=== PATIENT | female | born 1960 | race Asian ===

== ENCOUNTER → 2024-10-08 | Day surgery (SDC) | payer BC | END | disposition home or self-care (01) | LOC: JRADUS-SUR 10:42 | PROVIDERS: ATTEND Surgery Surgical Oncology | PROC: BH01ZZZ Plain Radiography of Left Breast (ICD-10-PCS; principal; 2024-10-08) | DX: D05.12 Intraductal carcinoma in situ of left breast (principal) | CPT/HCPCS: 19281; A4648 ==

== ENCOUNTER 2024-10-16 09:03 | Day surgery (SDC) | payer BC ==
[2024-10-08 13:21] VITALS: BMI 19.5
[2024-10-16] MEDS ORDERED: LIDOCAINE HCL/PF 2% SDV 5ML VIAL ONE (10:29)
[2024-10-16] MEDS ORDERED: MIDAZOLAM HCL 2 MG/2 ML SINGLE DOSE VIAL ONE (10:29)
[2024-10-16] MEDS ORDERED: PROPOFOL 20 ML ONE (10:29)
[2024-10-16] MEDS ORDERED: PROMETHAZINE HCL 25 MG/1 ML VIAL IVPB PRN (10:43)
[2024-10-16] MEDS ORDERED: ONDANSETRON 4 MG/2 ML VIAL IVPUSH PRN (10:43)
[2024-10-16] MEDS ORDERED: oxyCODONE HCL 5 MG TABLET PO PRN (10:43)
[2024-10-16] MEDS ORDERED: LACTATED RINGERS SOLUTION 1,000 ML IV SCH (10:45)
[2024-10-16] MEDS ORDERED: ACETAMINOPHEN INJECTION 100 ML ONE (11:00)
[2024-10-16] MEDS ORDERED: ONDANSETRON 4 MG/2 ML VIAL ONE (11:47)
[2024-10-16] MEDS ORDERED: KETOROLAC TROMETHAMINE 30 MG/1 ML VIAL ONE (11:47)
[2024-10-16] MEDS: BUPIVACAINE HCL/PF 0.5% (5MG/ML) 10 ML VIAL IJ ONE (11:49)
[2024-10-16] MEDS ORDERED: oxyCODONE HCL 5 MG TABLET ONE (13:04)
[2024-10-16] MEDS: oxyCODONE HCL 5 MG TABLET PO PRN (13:05)
[2024-10-16] MEDS ORDERED: BUPIVACAINE HCL/PF 0.5% (5MG/ML) 10 ML VIAL ONE (13:12)
[2024-10-16 13:13] VITALS: TEMP 97.7
[2024-10-16 13:47] VITALS: BP 137/65; PULSE 67; RESP 18
== END 2024-10-16 13:45 | disposition home or self-care (01) ==
LOC: FASU 09:03
PROVIDERS: ATTEND Surgery Surgical Oncology
PROC: 0HBU0ZZ Excision of Left Breast, Open Approach (ICD-10-PCS; principal; 2024-10-16 11:25)
DX: D05.12 Intraductal carcinoma in situ of left breast (principal)
CPT/HCPCS: 76098-TC-FY; 88305-TC; 88307-TC; 88342-TC; 94760

== ENCOUNTER 2024-11-13 07:09 | Day surgery (SDC) | payer BC ==
[2024-11-11 12:44] VITALS: BMI 30.2
[2024-11-13] MEDS ORDERED: BUPIVACAINE HCL/PF 0.5% (5MG/ML) 10 ML VIAL ONE (11:12)
[2024-11-13] MEDS ORDERED: PROPOFOL 20 ML ONE ×2 (11:24→11:38)
[2024-11-13] MEDS ORDERED: LIDOCAINE HCL/PF 2% SDV 5ML VIAL ONE (11:40)
[2024-11-13] MEDS ORDERED: MIDAZOLAM HCL 2 MG/2 ML SINGLE DOSE VIAL ONE (11:45)
[2024-11-13] MEDS ORDERED: ACETAMINOPHEN INJECTION 100 ML ONE (11:46)
[2024-11-13] MEDS ORDERED: HYDROmorphone HCL/PF 1 MG/ML VIAL ONE (11:58)
[2024-11-13] MEDS ORDERED: ONDANSETRON 4 MG/2 ML VIAL ONE (12:03)
[2024-11-13] MEDS ORDERED: DEXAMETHASONE SOD PHOSPHATE 4 MG/1 ML VIAL ONE (12:03)
[2024-11-13] MEDS ORDERED: KETOROLAC TROMETHAMINE 30 MG/1 ML VIAL ONE (12:06)
[2024-11-13] MEDS ORDERED: ONDANSETRON 4 MG/2 ML VIAL IVPUSH PRN ×2 (13:17)
[2024-11-13] MEDS ORDERED: PATIENT'S OWN MEDICATION (NON-FORMULARY) (Cholecalciferol (Vitamin D3) [Vitamin D3] 50 MCG PO SCH (13:30)
[2024-11-13] MEDS: DOCUSATE SODIUM 100 MG CAPSULE (FP) PO SCH (15:26)
[2024-11-13] MEDS: LACTATED RINGERS SOLUTION 1,000 ML IV SCH (15:26)
[2024-11-13] MEDS ORDERED: KETOROLAC TROMETHAMINE 15 MG/ML VIAL IVPUSH PRN (18:00)
[2024-11-13] MEDS ORDERED: KETOROLAC TROMETHAMINE 15 MG/ML VIAL IM PRN (18:00)
[2024-11-13] MEDS: ACETAMINOPHEN 1000 MG/100 ML BAG IVPB SCH (18:13)
[2024-11-13] MEDS: CEFAZOLIN 1 GM/D5W 1 GM/50 ML BAG IVPB SCH (18:44)
[2024-11-13] MEDS: ROSUVASTATIN CA 20 MG TABLET PO SCH (21:28)
[2024-11-13 22:45] VITALS: RESP 19
[2024-11-14] MEDS ORDERED: ACETAMINOPHEN 500 MG TABLET (FP) PO PRN (06:00)
[2024-11-14 07:44] LABS: MCHC 32.3 g/dl (32.2-35.5); MEAN CELL VOLUME 94.5 fl (79.4-94.8); MEAN PLT VOLUME 9.8 fl (9.4-12.3); RDW 11.6 % (12.4-16.4)
[2024-11-14 13:13] VITALS: BP 120/65; PULSE 66; TEMP 98.4
== END 2024-11-14 13:00 | disposition home or self-care (01) ==
LOC: FASUSAT 07:09 → JRADNM 07:09 → EDSTATUS 08:00 → FM/S 14:56 → FASUSAT 11-14 13:00
PROVIDERS: ATTEND Internal Medicine
PROC: 0HTU0ZZ Resection of Left Breast, Open Approach (ICD-10-PCS; principal; 2024-11-13 11:51)
DX: D05.12 Intraductal carcinoma in situ of left breast (principal)
CPT/HCPCS: 36415; 78195-TC; 85027; 88307-TC; 94760; A9541